=== PATIENT | male | born 1945 | race Caucasian/White ===

== ENCOUNTER 2025-02-08 18:23 | Emergency (ER) | payer MEDICARE, BC, SELFPAY ==
[2025-02-08 18:25] VITALS: BP 141/78
[2025-02-08 19:10] VITALS: BMI 29.4
[2025-02-08 19:11] VITALS: BP 151/78
--- NOTE | 2025-02-08 21:11 | ED.GENMED ---
History of Present Illness
General
Chief Complaint: Dizziness
Source: patient and family
Time Seen by Provider: 02/08/25 21:02
History of Present Illness
History of Present Illness:
79-year-old male with past medical history of previous NM, atrial fibrillation (on Xarelto), COPD, insulin-dependent diabetes, hypertension and hyperlipidemia presenting to the emergency department for evaluation of a mole due to symptoms including
cough for the last 3 weeks, nonproductive, minimal shortness of breath, dizziness which started about 3 days ago, patient unable to describe whether this is more of a lightheaded sensation or vertigo, family at the bedside stating patient has been
complaining that his ears are clogged and he has been having a hard time hearing, reportedly vomited nonbloody nonbilious emesis on the way to the ER this when asked what is currently bothering him right now patient states he just feels very
nauseous like he is going to throw up. Family notes complicated past medical history including recently being admitted at [facility] where he had a cervical spine fracture as well as recently had a Cline catheter placed due to chronic issues
with his prostate, they are awaiting surgical planning for prostatectomy but states the patient's legs have been too weak for him to tolerate this type of procedure.
Past History
Past History
ED Past Medical History: Arrthythmia, HTN, Hypercholesterolemia, IDDM and NM
ED Past Surgical History: Appendectomy, Cardiac, Orthopedic and Other
Social History
Tobacco: Former smoker
Alcohol: None
Drug: None
Personal:
Living: with family
Review of Systems
Review of Systems
All Other Systems: ROS reviewed and negative except as documented in HPI and ROS
Phy Exam
Physical Exam
Physical Exam:
GENERAL: Alert , in no apparent distress
EYE: clear conjunctiva b/l
HEAD: NCAT
ENT: o/p clr, mmm. Cerumen noted to bilateral ear, left slightly more than the right
CARDIAC: Rate controlled, irregularly irregular, systolic murmur at the right second intercostal space.
LUNGS: Clear breath sounds bilaterally, no acute respiratory distress, no wheezes/rales/rhonchi
ABDOMEN: Soft, without focal tenderness, no r/g, no cvat
GENITOURINARY: Cline catheter in place
NEUROLOGICAL: Alert and oriented
SKIN: Warm and dry, skin intact.
MUSCULOSKELETAL: No edema, well perfused.
PSYCH: Normal and appropriate interaction.
Scores
Heart Failure Risk
Heart Failure Risk Score: Not Applicable
Heart Score for Chest Pain Patients
STEMI patient?: Not applicable
Withdrawal Assessment of Alcohol
Withdrawal Assessment Completed?: Not applicable
Course
Orders/Labs/Results
Orders:
Orders
02/08/25 18:36
EKG [Electrocardiogram (*1)] Urgent
Reason for Study: Vertigo / Dizzy
EKG- Treatment ONCE
02/08/25 21:11
CT Head W/o Iv Contrast Urgent
Comment:
Reason For Exam: dizziness, vomiting, hx afib
EKG- Treatment ONCE
CR Chest - 2 Views Urgent
Comment:
Reason For Exam: cough x 3 weeks, COPD
02/08/25 21:19
Complete Blood Count/With Diff Urgent
Comprehensive Metabolic Panel Urgent
Magnesium Urgent
Troponin I Urgent
Urinalysis Reflex To Culture Urgent
Date Specimen was Collected: 02/08/25
Time Specimen was Collected: 21:19
Urine Microscopic Reflex Cult Urgent
Urine Culture Urgent
ALEKSANDAR Source: U
Specimen Description:
Date Specimen was Collected: 02/08/25
Time Specimen was Collected: 21:19
02/08/25 21:38
Ondansetron Injectable [Zofran] 4 mg IV NOW STA
02/08/25 21:47
COVID-19 Antigen Urgent
Source: Nasal Swab
Abnormal Lab Results
02/08/25
21:19
RBC 4.58 L 10^6/uL
(4.70-6.10)
Hgb 12.3 L g/dL
(13.0-18.0)
Hct 37.5 L %
(39.0-52.0)
MCH 26.9 L pg
(27.0-31.0)
MCHC 32.8 L g/dL
(33.0-37.0)
RDW 17.6 H %
(11.5-14.5)
Absolute Lymphs (auto) 0.8 L 10^3/uL
(1.2-3.4)
Absolute Monos (auto) 0.7 H 10^3/uL
(0.1-0.6)
Neutrophils % 77.0 H %
(42.2-75.2)
Lymphocytes % 10.3 L %
(20.5-51.1)
Sodium 133 L mmol/L
(135-145)
BUN 35 H mg/dl
(9-20)
Glucose 227 H mg/dl
(70-99)
Ur Occult Blood Reflex 2+ A
(Negative)
Leukocyte Esterase Rfl 2+ A
(Negative)
Urine RBC 7-10 A /HPF
(0-2)
Urine WBC (Reflex) 30-40 A /HPF
(0-5)
Urine Bacteria (Reflex) Many A
(Negative)
Urine Albumin (Reflex) 2+ A
(Neg - Trace)
02/08/25 21:19
02/08/25 21:19
Vital Signs
Initial and Last Documented VS:
Initial Vital Signs
Temp Pulse Resp BP Pulse Ox
97.5 F 82 18 141/78 97
02/08/25 18:25 02/08/25 18:25 02/08/25 18:25 02/08/25 18:25 02/08/25 18:25
Last Documented Vital Signs
Temp Pulse Resp BP Pulse Ox
97.5 F 78 18 154/76 99
02/08/25 18:25 02/08/25 22:41 02/08/25 22:41 02/08/25 22:41 02/08/25 22:41
Extension Service Specialist consulted with Physician
Extension Service Specialist consulted with physician?: Yes
Name of Physician Consulted: Archana
MDM/Problems Addressed
Differential Diagnosis Includes:
- CVA
- Intracranial bleeding
- Cardiac arrhythmia
- Electrolyte derangement
- Pneumonia
- UTI
- Sinusitis
- Otitis media
- Renal insufficiency
MDM/Problems Addressed:
79-year-old male with extensive past medical history presenting to the ER for a multitude of concerns, overall it was quite difficult to ascertain what symptoms brought patient to the ER this evening as family was discussing a multitude of symptoms
that have been ongoing over the last few weeks and months. Patient is hemodynamically stable and in no acute distress. Given his chronic medical conditions, age and multitude of symptoms will obtain labs, CT of the head, chest x-ray, EKG.
Disposition pending.
Chronic conditions affecting care: DM, Arrhythmia and COPD
Acute Exacerbation and/or Progression of Chronic Illness: Arrhythmia and COPD
*Radiology
Radiology exam reviewed: radiology read reviewed
*Pulse Oximetry
SaO2: 92
Oxygen Mode of Delivery: Room air
Patient hypoxic: yes
*EKG
Heart Rate: 72
Rate: normal
Rhythm: a-fib
Thornton: normal axis
*Dynamiter Interpretation
Rate: normal
Rhythm: a-fib
*Critical Care Note
Total Time (30-74mins, 75-104mins- exclusive of procedures): Not Applicable
Patient Management
Escalation/DeEscalation of care consider admission/obs:
Patient's workup is largely unremarkable for any acute pathologies. Head CT without any acute findings and labs within normal limits. Overall doubt emergent pathology. Case discussed with Dr. Magaña who agrees okay to discharge home.
Patient's urine is being cultured given he does have 30-40 WBCs on differential however given his chronic indwelling Cline catheter I suspect that this is the likely cause for any potential sign of infection.
ED Attending Note
-
Portions of this chart may have been created with voice recognition software.� Occasional wrong word or��sound alike� substitutions may have occurred due to the inherent limitations of voice recognition software.
Discharge Plan
Departure
Patient Disposition: Home (Routine Discharge)
Date of Disposition: 02/08/25
Time of Disposition: 22:30
Patient with high blood pressure during this ER visit?: Yes
Discharge Problem:
Nasal congestion, Lightheadedness, Vomiting
Instructions: Dizziness, Nonvertigo, (DC)
Prescriptions:
New
fluticasone propionate [Flonase Allergy Relief] 50 mcg/actuation spray,suspension
2 spray intranasal DAILY Qty: 16 0RF
No Action
metoprolol succinate 50 MG tablet extended release 24 hr
50 mg PO DAILY
aspirin 81 MG tablet,delayed release (DR/EC)
81 mg PO DAILY
colesevelam [WelChol] 625 MG tablet
1,875 mg PO BID
fluticasone propionate 1 SPRAY spray,suspension
1 spray intranasal BID
metformin 500 MG tablet extended release 24 hr
1,000 mg PO DAILY AT 0700
cholecalciferol (vitamin D3) [Vitamin D3] 1,000 UNIT capsule
1,000 unit PO DAILY
vitamin B complex-folic acid 0.4 MG tablet
0.4 mg PO DAILY
insulin detemir U-100 [Levemir FlexTouch U100 Insulin] 300 UNIT/3 ML insulin pen
60 unit SC DAILY@2200
rivaroxaban [Xarelto] 20 MG tablet
20 mg PO QPM
dulaglutide [Trulicity] 1.5 MG/0.5 ML pen injector
1.5 mg SQ DIRECTED
ascorbic acid (vitamin C) 500 MG capsule
500 mg PO DAILY
reroycvoglx-cvubxdwyw-lqiawutn [Trelegy Ellipta] 1 EACH blister with device
1 ea IH DAILY
atorvastatin 20 MG tablet
20 mg PO QPM 30 Days Qty: 30 0RF
loratadine 10 MG tablet
10 mg PO DAILY 30 Days Qty: 30 0RF
Referrals:
Camilo Virgen MD [Family Provider, Internal Medicine]
Interventions
Interventions:
*Risk Screen - Suicide Last Done: 02/08/25 18:25
*General Assessment Last Done: 02/08/25 18:25
*Neglect/Abuse Screening Last Done: 02/08/25 22:42
*ED- Fall Risk Assessment Last Done: 02/08/25 22:42
*ED COVID-19 Vaccine History Last Done: 02/08/25 22:42
*Nursing Disposition Last Done: 02/08/25 22:42
ED- Cardiac Assessment Last Done: 02/08/25 22:43
ED- Neurological Assessment Last Done: 02/08/25 19:11
ED Swallowing Screen Last Done: 02/08/25 22:40
Discharge Date and Time
Discharge Date/Time: 02/08/25 22:43
Print Language: ALBANIAN
[2025-02-08 21:33] LABS: Urine Character Clear (Clear)
[2025-02-08 21:36] LABS: Hematocrit 37.5 % (39.0-52.0); Hemoglobin 12.3 g/dL (13.0-18.0); Mean Corp Hgb Conc. 32.8 g/dL (33.0-37.0); Mean Corpuscular Volume 81.9 fL (80.0-94.0); Nucleated Red Blood Cells % 0 % (-); Platelet Count 157 10^3/uL (130-400); Red Cell Dist. Width 17.6 % (11.5-14.5)
[2025-02-08 21:40] LABS: Urine Squamous Cell 0-2 /LPF (Few)
[2025-02-08 21:41] LABS: Urine White Cell 30-40 /HPF (0-5)
[2025-02-08] MEDS: ZOFRAN 4 MG IV (21:45)
[2025-02-08 21:55] LABS: ALT (SGPT) 35 U/L (0-50); AST (SGOT) 25 U/L (17-59); Albumin 3.8 g/dl (3.5-5.0); Alkaline Phosphatase 102 U/L (38-126); Blood Urea Nitrogen 35 mg/dl (9-20); Calcium 9.4 mg/dl (8.4-10.2); Carbon Dioxide 28 mmol/L (22-30); Chloride 101 mmol/L (98-107); Estimated Creatinine Clearance 51 ml/min; Glucose 227 mg/dl (70-99); Magnesium 1.7 mg/dl (1.6-2.3); Potassium 4.8 mmol/L (3.5-5.1); Sodium 133 mmol/L (135-145); Total Protein 7.4 g/dl (6.3-8.2); eGFR 55.53
[2025-02-08 21:57] LABS: Troponin I < 0.012 ng/ml
[2025-02-08 22:12] LABS: COVID-19 Antigen Negative (Negative)
[2025-02-08 22:41] VITALS: BP 154/76
== END 2025-02-08 22:43 | disposition home or self-care (01) ==
LOC: EMR 18:23
PROVIDERS: Physician Assistant Medical; EMERGENCY PHYSICIAN Student in an Organized Health Care Education/Training Program; FAMILY PHYSICIAN Internal Medicine
DX: R11.2 Nausea with vomiting, unspecified (principal); R09.81 Nasal congestion; R42 Dizziness and giddiness; M62.81 Muscle weakness (generalized); Z11.52 Encounter for screening for COVID-19; I48.91 Unspecified atrial fibrillation; J44.9 Chronic obstructive pulmonary disease, unspecified; E11.9 Type 2 diabetes mellitus without complications; E78.00 Pure hypercholesterolemia, unspecified; I10 Essential (primary) hypertension; R01.1 Cardiac murmur, unspecified; I25.2 Old myocardial infarction; Z79.01 Long term (current) use of anticoagulants; Z79.4 Long term (current) use of insulin; Z87.891 Personal history of nicotine dependence
CPT/HCPCS: 99285; 96374; 70450; 71046; 80053; 81003; 81015; 83735; 84484; 85025; 87086; 87147; 87811; 93005